=== PATIENT | female | born 1935 | race Caucasian/White ===

== ENCOUNTER 2016-09-05 15:10 | Inpatient (IN) | payer MEDICARE, OTHER ==
[2016-09-05 16:03] VITALS: BMI 25.0
--- NOTE | 2016-09-05 16:26 | History and Physical Report ---
History of Present Illnes - History of Present Illness Reason for Visit: Weakness History of Present Illness: Patient transferred from [facility] after falling and sustaining a R femur fracture, which was repaired by Dr. Pride. She has been at [facility] for [address] Hartman and staff were working on sodium and BP. She also had some noted MS changes. Dr. Hartman told me today she had a sodium of 130 and has been on a 1200 cc fluid restriction (long h/o hyponatremia). Labs with her today were 125. Also noted HGB of 8.0. Patient has seen Dr. Barclay for iron deficiency in past and got IV iron. She is feeling good today - just weak. Leg causes her quite a bit of pain. 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), Other ( Benign adrenal tumor) Endocrine: Diabetes, Other (Thyroid nodule; Benign adrenal tumor; H/O hyponatremia) - Past Surgical History Past Surgical History: Cholecystectomy, Hysterectomy, Other (L CEA) - Past Family History Mother Family History: Cancer (renal), Father Family History: CVA (49), DM, - Past Social History Smoke: 1 pack per day Alcohol: None Drugs: None Lives: Alone - Health Maintenance Health Maintenance: Influenza Vaccine, Pneumococcal Vaccine, Colonoscopy (04/25) , Other (unknown) Influenza Vaccine: Current for this Influenza Season Pneumonia Vaccine: Yes Resuscitation Status: Resusciation Status Resuscitation Status Full Code Review of Systems - Review of Systems Constitutional: Weakness. negative: Fever Eyes: negative: pain ENT: negative: Ear Pain Respiratory: negative: Cough Cardiovascular: negative: Chest Pain Gastrointestinal: negative: Nausea Genitourinary: negative: Dysuria Musculoskeletal: Leg Pain. negative: Neck Pain Skin: negative: Rash Neurological: Weakness - Medications/Allergies Allergies/Adverse Reactions: Allergies Allergy/AdvReac Type Severity Reaction Status Date / Time Penicillins Allergy Unknown Verified 08/10/16 12:12 Home Medications: Home Medications Clonidine HCl [Catapres] 0.1 mg PO Q12 09/05/16 Escitalopram Oxalate [Lexapro] 10 mg PO 0700 09/05/16 Hydralazine HCl [APRESOLINE] 50 mg PO TID 09/05/16 Nifedipine [Nifedipine ER] 30 mg PO 0700 09/05/16 Tramadol HCl [Ultram] 1 - 2 tab PO Q4 PRN 09/05/16 Current Inpatient Medications: Current Inpatient Medications Aspirin (Aspirin) 81 mg PO DAILY [facility] Clonidine HCl (Catapress) 0.1 mg PO Q12 [facility] Enoxaparin Sodium (Lovenox) 30 mg SQ QD [facility] Stop: 09/19/16 16:59 Miscellaneous (Irbesartan [Avapro]) 300 mg PO D FRANCY Miscellaneous (Nifedipine [Nifedipine Er]) 30 mg PO 0700 [facility] Exam - Exam Vital Signs: Vital Signs (72 hours) 09/05/16 15:31 Temperature 97.3 F L Pulse Rate [ 57 L Left Pulse ox] Respiratory 20 Rate Blood Pressure 126/51 [Left Arm] O2 Sat by Pulse 99 Oximetry General: Alert, Oriented to Person, Oriented to Place, Oriented to Time, Cooperative HEENT: Atraumatic, PERRLA, EOMI, Mouth Mucous membr. moist/Cathedral Neck: Normal Range of Motion Lungs: Clear to auscultation, Normal air movement, Speaks full Sentences Cardiovascular: Regular rate Murmur: Systolic Murmur Abdomen: Normal bowel sounds, Soft, No tenderness Integumentary: Normal, Other (R femur - steri stips on incisions - healing well. ) Extremities: No edema Neurological: Generalized Weakness Psych/Mental Status: Mental status NL, Mood NL, Appropriate Affect, Intact Judgment Assessment/Plan - Assessment/Plan (1) Right femoral fracture Status: Acute Current Visit: Yes Qualifiers: Encounter type: subsequent encounter Femur location: intertrochanteric Fracture type: closed Fracture alignment: nondisplaced Fracture healing: with routine healing Qualified Code(s): S72.144D - Nondisplaced intertrochanteric fracture of right femur, subsequent encounter for closed fracture with routine healing Plan: Lovenox for DVT prevention but watch HGB. Work on pain control. Xrays in [address] Pride. (2) Hyponatremia Status: Acute Current Visit: No Plan: Cont. fluid restriction at 1200 cc/day. Recheck. (3) Weakness Status: Acute Current Visit: Yes Plan: Admit for PT/OT eval and treat. (4) DM type 2 (diabetes mellitus, type 2) Status: Chronic Current Visit: No Qualifiers: Diabetes mellitus complication status: without complication Diabetes mellitus halfway insulin use: without halfway use Qualified Code(s): E11.9 - Type 2 diabetes mellitus without complications Plan: Watch BS. May need SSI. (5) HTN (hypertension) Status: Chronic Current Visit: No Plan: Appears stable. Watch. (6) Iron deficiency anemia Status: Chronic Current Visit: No Qualifiers: Iron deficiency anemia type: unspecified iron deficiency Qualified Code(s) : D50.9 - Iron deficiency anemia, unspecified Plan: [facility] iron studies show low iron. Will start iron replacement. VTE Assessment - RISK FACTOR SCORE VTE RISK FACTOR SCORES: AGE OVER 60 YEARS, MAJOR SURGERY/ANESTHESIA TIME > 1 HOUR, HIP, PELVIS, OR LEG FX - RISK VTE HIGH RISK: SCORE OF 3-4 (RISK PROXIMAL DVT 4-8%) PROPHYLAXIS NEEDED
[2016-09-05] MEDS: ENOXAPARIN SODIUM 30 MG/0.3 ML DISP.SYRIN SQ SCH (18:06)
[2016-09-05] MEDS: HYDRALAZINE HCL 25 MG TABLET PO SCH (18:07)
[2016-09-05] MEDS: CloNIDine HCL 0.1 MG TABLET PO SCH ×2 (20:16→20:57)
[2016-09-05] MEDS: METOPROLOL TARTRATE 50 MG TABLET PO SCH ×2 (20:16→20:57)
[2016-09-05] MEDS: FERROUS SULFATE 325 MG TABLET PO SCH (20:16)
[2016-09-06] MEDS ORDERED: ESCITALOPRAM OXALATE 10 MG TABLET PO ONE (03:38)
[2016-09-06] MEDS ORDERED: ASPIRIN EC 81 MG TABLET.DR ONE (03:38)
[2016-09-06] MEDS: PANTOPRAZOLE SODIUM 40 MG TABLET PO SCH (05:54)
[2016-09-06] MEDS ORDERED: NIFEDIPINE 30 MG PO SCH ×2 (07:00)
[2016-09-06] MEDS ORDERED: ESCITALOPRAM OXALATE 10 MG TABLET PO SCH (07:00)
[2016-09-06] MEDS: METOPROLOL TARTRATE 50 MG TABLET PO SCH ×2 (09:16→20:32)
[2016-09-06] MEDS: CloNIDine HCL 0.1 MG TABLET PO SCH ×2 (09:16→20:31)
[2016-09-06] MEDS: ESCITALOPRAM OXALATE 10 MG TABLET PO SCH (09:16)
[2016-09-06] MEDS: ACETAMINOPHEN 325 MG TABLET PO PRN ×2 (09:16→15:19)
[2016-09-06] MEDS: FERROUS SULFATE 325 MG TABLET PO SCH ×2 (09:17→20:30)
[2016-09-06] MEDS: traMADol HCL 50 MG TABLET PO PRN ×2 (09:17→15:18)
[2016-09-06] MEDS: HYDRALAZINE HCL 25 MG TABLET PO SCH ×3 (09:17→17:57)
[2016-09-06] MEDS: ASPIRIN 81 MG CHEW TAB PO SCH (09:21)
[2016-09-06] MEDS: IRBESARTAN 300 MG TABLET PO SCH (10:21)
[2016-09-06] MEDS: NIFEDIPINE 30 MG PO SCH (15:18)
[2016-09-06] MEDS: ENOXAPARIN SODIUM 30 MG/0.3 ML DISP.SYRIN SQ SCH (17:39)
[2016-09-07] MEDS: PANTOPRAZOLE SODIUM 40 MG TABLET PO SCH (05:42)
[2016-09-07] MEDS: HYDRALAZINE HCL 25 MG TABLET PO SCH ×3 (09:11→17:52)
[2016-09-07] MEDS: METOPROLOL TARTRATE 50 MG TABLET PO SCH ×2 (09:12→20:35)
[2016-09-07] MEDS: ACETAMINOPHEN 325 MG TABLET PO PRN ×2 (09:12→17:52)
[2016-09-07] MEDS: ASPIRIN 81 MG CHEW TAB PO SCH (09:12)
[2016-09-07] MEDS: ESCITALOPRAM OXALATE 10 MG TABLET PO SCH (09:12)
[2016-09-07] MEDS: traMADol HCL 50 MG TABLET PO PRN ×3 (09:12→23:53)
[2016-09-07] MEDS: FERROUS SULFATE 325 MG TABLET PO SCH ×2 (09:13→20:35)
[2016-09-07] MEDS: NIFEDIPINE 30 MG PO SCH (09:13)
[2016-09-07] MEDS: CloNIDine HCL 0.1 MG TABLET PO SCH ×2 (09:13→20:35)
[2016-09-07] MEDS: IRBESARTAN 300 MG TABLET PO SCH (09:39)
[2016-09-07] MEDS: ENOXAPARIN SODIUM 30 MG/0.3 ML DISP.SYRIN SQ SCH (17:52)
[2016-09-08] MEDS: traMADol HCL 50 MG TABLET PO PRN ×3 (00:15→20:36)
[2016-09-08] MEDS: PANTOPRAZOLE SODIUM 40 MG TABLET PO SCH (06:35)
[2016-09-08 07:48] LABS: BASOPHILS % 0.3 (0.0-1.5); EOSINOPHILS % 3.2 % (0.0-6.8); LYMPHOCYTES # 1.5 # k/uL (0.6-4.0); MEAN CORPUSCULAR HEMOGLOBIN 27.7 pg (28.0-34.0); MONOCYTES # 0.4 # k/uL (0.0-0.9); MONOCYTES % 4.1 % (0.0-11.0); NEUTROPHILS # 7.8 # k/uL (1.4-7.7)
[2016-09-08] MEDS ORDERED: QUEtiapine FUMARATE 25 MG TABLET PO SCH (09:00)
[2016-09-08] MEDS: FERROUS SULFATE 325 MG TABLET PO SCH ×2 (09:36→20:37)
[2016-09-08] MEDS: HYDRALAZINE HCL 25 MG TABLET PO SCH ×3 (09:36→17:04)
[2016-09-08] MEDS: CloNIDine HCL 0.1 MG TABLET PO SCH ×2 (09:36→20:37)
[2016-09-08] MEDS: ASPIRIN 81 MG CHEW TAB PO SCH (09:36)
[2016-09-08] MEDS: IRBESARTAN 300 MG TABLET PO SCH (09:37)
[2016-09-08] MEDS: NIFEDIPINE 30 MG PO SCH (09:37)
[2016-09-08] MEDS: METOPROLOL TARTRATE 50 MG TABLET PO SCH ×2 (09:37→20:37)
[2016-09-08] MEDS: ESCITALOPRAM OXALATE 10 MG TABLET PO SCH (09:37)
[2016-09-08] MEDS ORDERED: QUEtiapine FUMARATE 25 MG TABLET PO PRN (11:10)
[2016-09-08] MEDS: ENOXAPARIN SODIUM 30 MG/0.3 ML DISP.SYRIN SQ SCH (16:47)
[2016-09-09] MEDS: PANTOPRAZOLE SODIUM 40 MG TABLET PO SCH (06:06)
[2016-09-09] MEDS: HYDRALAZINE HCL 25 MG TABLET PO SCH ×3 (09:53→18:22)
[2016-09-09] MEDS: ASPIRIN 81 MG CHEW TAB PO SCH (09:54)
[2016-09-09] MEDS: CloNIDine HCL 0.1 MG TABLET PO SCH ×2 (09:55→20:23)
[2016-09-09] MEDS: IRBESARTAN 300 MG TABLET PO SCH (09:55)
[2016-09-09] MEDS: FERROUS SULFATE 325 MG TABLET PO SCH ×2 (09:55→20:23)
[2016-09-09] MEDS: METOPROLOL TARTRATE 50 MG TABLET PO SCH ×2 (09:56→20:23)
[2016-09-09] MEDS: NIFEDIPINE 30 MG PO SCH (09:57)
[2016-09-09] MEDS: ENOXAPARIN SODIUM 30 MG/0.3 ML DISP.SYRIN SQ SCH (17:09)
[2016-09-09] MEDS: ACETAMINOPHEN 325 MG TABLET PO PRN (17:27)
[2016-09-09] MEDS: traMADol HCL 50 MG TABLET PO PRN (20:23)
[2016-09-10] MEDS: PANTOPRAZOLE SODIUM 40 MG TABLET PO SCH (05:55)
[2016-09-10] MEDS: ASPIRIN 81 MG CHEW TAB PO SCH (08:17)
[2016-09-10] MEDS: FERROUS SULFATE 325 MG TABLET PO SCH ×2 (08:17→19:55)
[2016-09-10] MEDS: CloNIDine HCL 0.1 MG TABLET PO SCH ×2 (08:17→19:55)
[2016-09-10] MEDS: HYDRALAZINE HCL 25 MG TABLET PO SCH ×3 (08:17→17:50)
[2016-09-10] MEDS: METOPROLOL TARTRATE 50 MG TABLET PO SCH ×2 (08:18→19:55)
[2016-09-10] MEDS: IRBESARTAN 300 MG TABLET PO SCH (08:18)
[2016-09-10] MEDS: NIFEDIPINE 30 MG PO SCH (08:19)
[2016-09-10] MEDS: ACETAMINOPHEN 325 MG TABLET PO PRN (13:04)
[2016-09-10] MEDS: ENOXAPARIN SODIUM 30 MG/0.3 ML DISP.SYRIN SQ SCH (17:43)
[2016-09-10] MEDS: traMADol HCL 50 MG TABLET PO PRN (19:55)
[2016-09-11] MEDS: PANTOPRAZOLE SODIUM 40 MG TABLET PO SCH (06:27)
[2016-09-11] MEDS: HYDRALAZINE HCL 25 MG TABLET PO SCH ×3 (08:47→17:51)
[2016-09-11] MEDS: FERROUS SULFATE 325 MG TABLET PO SCH ×2 (08:47→19:50)
[2016-09-11] MEDS: IRBESARTAN 300 MG TABLET PO SCH (08:47)
[2016-09-11] MEDS: METOPROLOL TARTRATE 50 MG TABLET PO SCH ×2 (08:47→19:48)
[2016-09-11] MEDS: ASPIRIN 81 MG CHEW TAB PO SCH (08:47)
[2016-09-11] MEDS: CloNIDine HCL 0.1 MG TABLET PO SCH ×2 (08:48→19:48)
[2016-09-11] MEDS: NIFEDIPINE 30 MG PO SCH (08:48)
[2016-09-11] MEDS: ACETAMINOPHEN 325 MG TABLET PO PRN (10:34)
[2016-09-11] MEDS ORDERED: diphenhydrAMINE HCL 25 MG TABLET PO ONE (15:10)
[2016-09-11] MEDS: ENOXAPARIN SODIUM 30 MG/0.3 ML DISP.SYRIN SQ SCH (17:50)
[2016-09-11] MEDS: traMADol HCL 50 MG TABLET PO PRN (19:51)
[2016-09-12] MEDS: PANTOPRAZOLE SODIUM 40 MG TABLET PO SCH (06:16)
[2016-09-12] MEDS: HYDRALAZINE HCL 25 MG TABLET PO SCH ×3 (07:59→16:53)
[2016-09-12] MEDS: ASPIRIN 81 MG CHEW TAB PO SCH (08:00)
[2016-09-12] MEDS: FERROUS SULFATE 325 MG TABLET PO SCH ×2 (08:00→20:08)
[2016-09-12] MEDS: NIFEDIPINE 30 MG PO SCH (08:00)
[2016-09-12] MEDS: METOPROLOL TARTRATE 50 MG TABLET PO SCH ×2 (08:00→20:09)
[2016-09-12] MEDS: CloNIDine HCL 0.1 MG TABLET PO SCH ×2 (08:00→20:08)
[2016-09-12] MEDS: IRBESARTAN 300 MG TABLET PO SCH ×2 (08:01→08:32)
[2016-09-12] MEDS: ACETAMINOPHEN 325 MG TABLET PO PRN (08:29)
[2016-09-12] MEDS: NIFEDIPINE 30 MG TAB.ER.24 PO SCH (10:48)
[2016-09-12 11:13] LABS: BASOPHILS % 0.2 (0.0-1.5); EOSINOPHILS % 1.7 % (0.0-6.8); LYMPHOCYTES # 1.2 # k/uL (0.6-4.0); MEAN CORPUSCULAR HEMOGLOBIN 28.5 pg (28.0-34.0); MONOCYTES # 0.2 # k/uL (0.0-0.9); MONOCYTES % 2.8 % (0.0-11.0); NEUTROPHILS # 4.5 # k/uL (1.4-7.7)
[2016-09-12] MEDS: ENOXAPARIN SODIUM 30 MG/0.3 ML DISP.SYRIN SQ SCH (16:53)
[2016-09-12] MEDS: traMADol HCL 50 MG TABLET PO PRN (20:09)
[2016-09-13] MEDS: PANTOPRAZOLE SODIUM 40 MG TABLET PO SCH (06:20)
[2016-09-13] MEDS: HYDRALAZINE HCL 25 MG TABLET PO SCH ×3 (08:44→17:20)
[2016-09-13] MEDS: CloNIDine HCL 0.1 MG TABLET PO SCH (08:45)
[2016-09-13] MEDS: FERROUS SULFATE 325 MG TABLET PO SCH ×2 (08:45→19:51)
[2016-09-13] MEDS: METOPROLOL TARTRATE 50 MG TABLET PO SCH ×2 (08:45→19:51)
[2016-09-13] MEDS: ASPIRIN 81 MG CHEW TAB PO SCH (08:46)
[2016-09-13] MEDS: NIFEDIPINE 30 MG TAB.ER.24 PO SCH (08:46)
[2016-09-13] MEDS: IRBESARTAN 300 MG TABLET PO SCH (08:46)
[2016-09-13] MEDS: ACETAMINOPHEN 325 MG TABLET PO PRN (08:48)
--- NOTE | 2016-09-13 12:24 | Inpatient Progress Note ---
Subjective - Required Recertification Statement I anticipate X number of days because-include discharge plan: 7 - Review of Systems Subjective: Patient still confused. Therapy reports more off balance yesterday. Objective - Exam Vitals and I&O: Vital Signs Temp 97.8 F 09/13/16 10:04 Pulse 58 L 09/13/16 10:04 Resp 20 09/13/16 10:04 BP 169/60 09/13/16 10:04 Pulse Ox 97 09/13/16 10:04 Intake & Output 09/12/16 09/13/16 09/13/16 23:59 11:59 23:59 Intake Total 440 240 Balance 440 240 Intake: Oral 440 240 Other: Voiding Method Toilet Toilet # Bowel Movements 0 General: Alert, Oriented to Person, Oriented to Place, Oriented to Time Lungs: Clear to auscultation, Normal air movement - Results Results: Laboratory Results WBC 6.00 K/ul (4.00-12.00) 09/12/16 11:00 RBC 2.97 M/ul (3.90-5.20) L 09/12/16 11:00 Hgb 8.5 g/dL (12.0-16.0) L 09/12/16 11:00 Hct 27.4 % (34.5-46.5) L 09/12/16 11:00 MCV 92.1 fl (80.0-100.0) 09/12/16 11:00 MCH 28.5 pg (28.0-34.0) 09/12/16 11:00 MCHC 31.0 g/dL (30.0-36.0) 09/12/16 11:00 RDW 16.8 % (11.3-14.3) H 09/12/16 11:00 Plt Count 427 K/mm3 (130-400) H 09/12/16 11:00 Neut % (Auto) 74.9 % (39.0-79.0) 09/12/16 11:00 Lymph % (Auto) 19.1 % (16.0-50.0) 09/12/16 11:00 [place] % (Auto) 2.8 % (0.0-11.0) 09/12/16 11:00 Eos % (Auto) 1.7 % (0.0-6.8) 09/12/16 11:00 Baso % (Auto) 0.2 (0.0-1.5) 09/12/16 11:00 Neut # 4.5 # k/uL (1.4-7.7) 09/12/16 11:00 Lymph # 1.2 # k/uL (0.6-4.0) 09/12/16 11:00 [place] # 0.2 # k/uL (0.0-0.9) 09/12/16 11:00 Eos # 0.1 # k/uL (0.0-0.6) 09/12/16 11:00 Baso # 0.0 # k/uL (0.0-0.5) 09/12/16 11:00 Reactive Lymphs % 1.3 % (0.0-5.0) 09/12/16 11:00 Reactive Lymphs # 0.1 # k/uL (0.0-0.8) 09/12/16 11:00 Sodium 125 mmol/L (136-145) L 09/12/16 11:00 Potassium 4.3 mmol/L (3.5-5.0) 09/12/16 11:00 Chloride 102 mmol/L (98-110) 09/12/16 11:00 Carbon Dioxide 29 mmol/L (20-32) 09/12/16 11:00 BUN 27 mg/dL (10-26) H 09/12/16 11:00 Creatinine 1.7 mg/dL (0.4-1.5) H 09/12/16 11:00 Estimated Creat Clear 32 09/12/16 11:00 Est GFR ( Amer) 37 (60-) L 09/12/16 11:00 Est GFR (Non-Af Amer) 31 (60-) L 09/12/16 11:00 Glucose 224 mg/dL (70-99) H 09/12/16 11:00 Calcium 9.9 mg/dL (8.5-10.5) 09/12/16 11:00 Assessment/Plan - Assessment/Plan (1) Right femoral fracture Status: Acute Current Visit: Yes Qualifiers: Encounter type: subsequent encounter Femur location: intertrochanteric Fracture type: closed Fracture alignment: nondisplaced Fracture healing: with routine healing Qualified Code(s): S72.144D - Nondisplaced intertrochanteric fracture of right femur, subsequent encounter for closed fracture with routine healing (2) Hyponatremia Status: Acute Current Visit: No Plan: Back down to 125 today from 126. I discussed with Dr. Hartman who suggests this is cause of mentation problems and suggest we look at meds. Pharmacy unable to identify a certain med she is on that would cause this. I found a few case reports of nifedipine and clonidine causing it. Will d/c and recheck sodium in 48 hours. Watch BP closely. If no better, plan to transfer back to [facility]. (3) Weakness Status: Acute Current Visit: Yes (4) DM type 2 (diabetes mellitus, type 2) Status: Chronic Current Visit: No Qualifiers: Diabetes mellitus complication status: without complication Diabetes mellitus intermodal dispatcher insulin use: without intermodal dispatcher use Qualified Code(s): E11.9 - Type 2 diabetes mellitus without complications (5) HTN (hypertension) Status: Chronic Current Visit: No (6) Iron deficiency anemia Status: Chronic Current Visit: No Qualifiers: Iron deficiency anemia type: unspecified iron deficiency Qualified Code(s) : D50.9 - Iron deficiency anemia, unspecified
[2016-09-13] MEDS: ENOXAPARIN SODIUM 30 MG/0.3 ML DISP.SYRIN SQ SCH (17:21)
[2016-09-14] MEDS: PANTOPRAZOLE SODIUM 40 MG TABLET PO SCH (06:07)
[2016-09-14] MEDS: HYDRALAZINE HCL 25 MG TABLET PO SCH ×3 (08:02→17:06)
[2016-09-14] MEDS: FERROUS SULFATE 325 MG TABLET PO SCH ×2 (08:03→19:52)
[2016-09-14] MEDS: IRBESARTAN 300 MG TABLET PO SCH (08:03)
[2016-09-14] MEDS: METOPROLOL TARTRATE 50 MG TABLET PO SCH ×2 (08:03→19:53)
[2016-09-14] MEDS: ASPIRIN 81 MG CHEW TAB PO SCH (08:03)
[2016-09-14] MEDS: ENOXAPARIN SODIUM 30 MG/0.3 ML DISP.SYRIN SQ SCH (17:06)
[2016-09-15] MEDS: PANTOPRAZOLE SODIUM 40 MG TABLET PO SCH (05:42)
[2016-09-15] MEDS: IRBESARTAN 300 MG TABLET PO SCH (08:51)
[2016-09-15] MEDS: HYDRALAZINE HCL 25 MG TABLET PO SCH ×3 (08:52→18:07)
[2016-09-15] MEDS: FERROUS SULFATE 325 MG TABLET PO SCH ×2 (08:52→19:42)
[2016-09-15] MEDS: METOPROLOL TARTRATE 50 MG TABLET PO SCH ×2 (08:52→19:42)
[2016-09-15] MEDS: ASPIRIN 81 MG CHEW TAB PO SCH (08:52)
[2016-09-15] MEDS: ACETAMINOPHEN 325 MG TABLET PO PRN (11:25)
[2016-09-15] MEDS: ENOXAPARIN SODIUM 30 MG/0.3 ML DISP.SYRIN SQ SCH (16:11)
[2016-09-16] MEDS: PANTOPRAZOLE SODIUM 40 MG TABLET PO SCH (06:17)
[2016-09-16] MEDS: ACETAMINOPHEN 325 MG TABLET PO PRN (07:35)
[2016-09-16] MEDS: HYDRALAZINE HCL 25 MG TABLET PO SCH ×3 (08:29→17:56)
[2016-09-16] MEDS: METOPROLOL TARTRATE 50 MG TABLET PO SCH ×2 (08:30→19:45)
[2016-09-16] MEDS: ASPIRIN 81 MG CHEW TAB PO SCH (08:30)
[2016-09-16] MEDS: FERROUS SULFATE 325 MG TABLET PO SCH ×2 (08:30→19:45)
[2016-09-16] MEDS: IRBESARTAN 300 MG TABLET PO SCH (08:30)
[2016-09-16] MEDS: ENOXAPARIN SODIUM 30 MG/0.3 ML DISP.SYRIN SQ SCH (17:56)
[2016-09-17] MEDS: PANTOPRAZOLE SODIUM 40 MG TABLET PO SCH (06:02)
[2016-09-17] MEDS: HYDRALAZINE HCL 25 MG TABLET PO SCH ×3 (08:25→17:55)
[2016-09-17] MEDS: FERROUS SULFATE 325 MG TABLET PO SCH ×2 (08:26→19:46)
[2016-09-17] MEDS: ASPIRIN 81 MG CHEW TAB PO SCH (08:26)
[2016-09-17] MEDS: METOPROLOL TARTRATE 50 MG TABLET PO SCH ×2 (08:26→19:46)
[2016-09-17] MEDS: IRBESARTAN 300 MG TABLET PO SCH (09:25)
[2016-09-17] MEDS: ENOXAPARIN SODIUM 30 MG/0.3 ML DISP.SYRIN SQ SCH (17:55)
[2016-09-18] MEDS: PANTOPRAZOLE SODIUM 40 MG TABLET PO SCH (05:41)
--- NOTE | 2016-09-18 08:01 | Inpatient Progress Note ---
Subjective - Required Recertification Statement I anticipate X number of days because-include discharge plan: 7 - Review of Systems Subjective: Confusion is improving. BP up to 180's at times. Objective - Exam Vitals and I&O: Vital Signs Temp 98.6 F 09/17/16 20:23 Pulse 86 09/17/16 20:23 Resp 18 09/17/16 20:23 BP 156/70 09/17/16 20:23 Pulse Ox 97 09/17/16 20:23 Intake & Output 09/17/16 09/17/16 09/18/16 11:59 23:59 11:59 Intake Total 390 1060 30 Output Total 3 Balance 390 1057 30 Weight 69.4 kg Intake: Oral 390 1060 30 Output: Urine 3 Other: Voiding Method Toilet Toilet General: Alert, Oriented to Person, Oriented to Time, Cooperative Lungs: Clear to auscultation, Normal air movement Cardiovascular: Regular rate - Results Results: Laboratory Results WBC 6.00 K/ul (4.00-12.00) 09/12/16 11:00 RBC 2.97 M/ul (3.90-5.20) L 09/12/16 11:00 Hgb 8.5 g/dL (12.0-16.0) L 09/12/16 11:00 Hct 27.4 % (34.5-46.5) L 09/12/16 11:00 MCV 92.1 fl (80.0-100.0) 09/12/16 11:00 MCH 28.5 pg (28.0-34.0) 09/12/16 11:00 MCHC 31.0 g/dL (30.0-36.0) 09/12/16 11:00 RDW 16.8 % (11.3-14.3) H 09/12/16 11:00 Plt Count 427 K/mm3 (130-400) H 09/12/16 11:00 Neut % (Auto) 74.9 % (39.0-79.0) 09/12/16 11:00 Lymph % (Auto) 19.1 % (16.0-50.0) 09/12/16 11:00 [place] % (Auto) 2.8 % (0.0-11.0) 09/12/16 11:00 Eos % (Auto) 1.7 % (0.0-6.8) 09/12/16 11:00 Baso % (Auto) 0.2 (0.0-1.5) 09/12/16 11:00 Neut # 4.5 # k/uL (1.4-7.7) 09/12/16 11:00 Lymph # 1.2 # k/uL (0.6-4.0) 09/12/16 11:00 [place] # 0.2 # k/uL (0.0-0.9) 09/12/16 11:00 Eos # 0.1 # k/uL (0.0-0.6) 09/12/16 11:00 Baso # 0.0 # k/uL (0.0-0.5) 09/12/16 11:00 Reactive Lymphs % 1.3 % (0.0-5.0) 09/12/16 11:00 Reactive Lymphs # 0.1 # k/uL (0.0-0.8) 09/12/16 11:00 Sodium 128 mmol/L (136-145) L 09/18/16 06:10 Potassium 4.4 mmol/L (3.5-5.0) 09/18/16 06:10 Chloride 96 mmol/L (98-110) L 09/18/16 06:10 Carbon Dioxide 24 mmol/L (20-32) 09/18/16 06:10 BUN 28 mg/dL (10-26) H 09/18/16 06:10 Creatinine 1.5 mg/dL (0.4-1.5) 09/18/16 06:10 Estimated Creat Clear 37 09/18/16 06:10 Est GFR ( Amer) 43 (60-) L 09/18/16 06:10 Est GFR (Non-Af Amer) 35 (60-) L 09/18/16 06:10 Glucose 139 mg/dL (70-99) H 09/18/16 06:10 Calcium 9.3 mg/dL (8.5-10.5) 09/18/16 06:10 Assessment/Plan - Assessment/Plan (1) Right femoral fracture Status: Acute Current Visit: Yes Qualifiers: Encounter type: subsequent encounter Femur location: intertrochanteric Fracture type: closed Fracture alignment: nondisplaced Fracture healing: with routine healing Qualified Code(s): S72.144D - Nondisplaced intertrochanteric fracture of right femur, subsequent encounter for closed fracture with routine healing Plan: Cont. PT/OT. (2) Hyponatremia Status: Acute Current Visit: No Plan: Improved off clonidine and (3) Weakness Status: Acute Current Visit: Yes (4) DM type 2 (diabetes mellitus, type 2) Status: Chronic Current Visit: No Qualifiers: Diabetes mellitus complication status: without complication Diabetes mellitus halfway insulin use: without termite helper use Qualified Code(s): E11.9 - Type 2 diabetes mellitus without complications (5) HTN (hypertension) Status: Chronic Current Visit: No Plan: Restart nifedipine this am. Watch sodium. (6) Iron deficiency anemia Status: Chronic Current Visit: No Qualifiers: Iron deficiency anemia type: unspecified iron deficiency Qualified Code(s) : D50.9 - Iron deficiency anemia, unspecified
[2016-09-18] MEDS: FERROUS SULFATE 325 MG TABLET PO SCH ×2 (08:37→20:16)
[2016-09-18] MEDS: IRBESARTAN 300 MG TABLET PO SCH (08:37)
[2016-09-18] MEDS: NIFEDIPINE 30 MG TAB.ER.24 PO SCH (08:37)
[2016-09-18] MEDS: HYDRALAZINE HCL 25 MG TABLET PO SCH ×3 (08:37→17:51)
[2016-09-18] MEDS: METOPROLOL TARTRATE 50 MG TABLET PO SCH ×2 (08:37→20:16)
[2016-09-18] MEDS: ASPIRIN 81 MG CHEW TAB PO SCH (08:37)
[2016-09-18] MEDS: ACETAMINOPHEN 325 MG TABLET PO PRN (11:28)
[2016-09-18] MEDS: ENOXAPARIN SODIUM 30 MG/0.3 ML DISP.SYRIN SQ SCH (17:51)
[2016-09-19] MEDS: PANTOPRAZOLE SODIUM 40 MG TABLET PO SCH (05:45)
[2016-09-19] MEDS: FERROUS SULFATE 325 MG TABLET PO SCH ×2 (08:47→19:41)
[2016-09-19] MEDS: HYDRALAZINE HCL 25 MG TABLET PO SCH ×3 (08:47→17:52)
[2016-09-19] MEDS: ASPIRIN 81 MG CHEW TAB PO SCH (08:47)
[2016-09-19] MEDS: IRBESARTAN 300 MG TABLET PO SCH (08:48)
[2016-09-19] MEDS: METOPROLOL TARTRATE 50 MG TABLET PO SCH ×2 (08:48→19:41)
[2016-09-19] MEDS: NIFEDIPINE 30 MG TAB.ER.24 PO SCH (08:48)
[2016-09-19] MEDS: ACETAMINOPHEN 325 MG TABLET PO PRN (10:12)
[2016-09-20] MEDS: PANTOPRAZOLE SODIUM 40 MG TABLET PO SCH (06:36)
[2016-09-20] MEDS: FERROUS SULFATE 325 MG TABLET PO SCH ×2 (08:26→19:47)
[2016-09-20] MEDS: HYDRALAZINE HCL 25 MG TABLET PO SCH ×3 (08:26→18:29)
[2016-09-20] MEDS: ASPIRIN 81 MG CHEW TAB PO SCH (08:26)
[2016-09-20] MEDS: IRBESARTAN 300 MG TABLET PO SCH (08:26)
[2016-09-20] MEDS: METOPROLOL TARTRATE 50 MG TABLET PO SCH ×2 (08:31→19:47)
[2016-09-20] MEDS: NIFEDIPINE 30 MG TAB.ER.24 PO SCH (08:31)
[2016-09-20] MEDS: ACETAMINOPHEN 325 MG TABLET PO SCH (18:29)
--- NOTE | 2016-09-20 18:35 | Diagnostic Imaging Report ---
[facility] [id number] [facility] [address] [address] Report Submission Date: Sep 20, 2016 4:25:16 PM MARKET RESEARCH SPECIALIST Patient Study Name: LIZA RAMIREZ Date: Sep 20, 2016 3:12:06 PM MARKET RESEARCH SPECIALIST Modality Type: CR Gender: F Description: PELVIS : 31 Institution: [facility] Physician: JASE TAYLOR MD Right hip 2 views Clinical history: Right hip pain, history of fall 3 weeks ago There is a fairly recent of intertrochanteric fracture with an internal fixation with hardware in good position. Prior films are not available for comparison. Fracture of the lesser trochanter is displaced medially and superiorly . Impression: An intertrochanteric fracture of the right hip with hardware is in good position Fracture of the lesser trochanter is displaced medially and superiorly Electronically signed on Sep 20, 2016 4:25:16 PM MARKET RESEARCH SPECIALIST by: Lucius DENSON
[2016-09-21] MEDS: PANTOPRAZOLE SODIUM 40 MG TABLET PO SCH (06:50)
[2016-09-21] MEDS: ASPIRIN 81 MG CHEW TAB PO SCH (08:13)
[2016-09-21] MEDS: FERROUS SULFATE 325 MG TABLET PO SCH ×2 (08:13→19:33)
[2016-09-21] MEDS: HYDRALAZINE HCL 25 MG TABLET PO SCH ×3 (08:13→18:09)
[2016-09-21] MEDS: NIFEDIPINE 30 MG TAB.ER.24 PO SCH (08:14)
[2016-09-21] MEDS: IRBESARTAN 300 MG TABLET PO SCH (08:14)
[2016-09-21] MEDS: ACETAMINOPHEN 325 MG TABLET PO SCH ×3 (08:14→18:17)
[2016-09-21] MEDS: METOPROLOL TARTRATE 50 MG TABLET PO SCH ×2 (08:14→19:33)
[2016-09-21] MEDS: ACETAMINOPHEN 325 MG TABLET PO PRN (13:00)
[2016-09-21] MEDS ORDERED: METOPROLOL TARTRATE 50 MG TABLET ONE (19:32)
[2016-09-22] MEDS: PANTOPRAZOLE SODIUM 40 MG TABLET PO SCH (06:10)
[2016-09-22] MEDS: HYDRALAZINE HCL 25 MG TABLET PO SCH ×3 (09:04→18:47)
[2016-09-22] MEDS: ASPIRIN 81 MG CHEW TAB PO SCH (09:05)
[2016-09-22] MEDS: FERROUS SULFATE 325 MG TABLET PO SCH ×2 (09:05→20:24)
[2016-09-22] MEDS: METOPROLOL TARTRATE 50 MG TABLET PO SCH ×2 (09:06→20:24)
[2016-09-22] MEDS: NIFEDIPINE 30 MG TAB.ER.24 PO SCH (09:06)
[2016-09-22] MEDS: IRBESARTAN 300 MG TABLET PO SCH (09:06)
[2016-09-22] MEDS: ACETAMINOPHEN 325 MG TABLET PO SCH ×3 (09:07→18:48)
[2016-09-23] MEDS: PANTOPRAZOLE SODIUM 40 MG TABLET PO SCH (05:29)
[2016-09-23] MEDS: HYDRALAZINE HCL 25 MG TABLET PO SCH ×3 (08:06→18:06)
[2016-09-23] MEDS: ASPIRIN 81 MG CHEW TAB PO SCH (08:06)
[2016-09-23] MEDS: METOPROLOL TARTRATE 50 MG TABLET PO SCH ×2 (08:07→20:02)
[2016-09-23] MEDS: FERROUS SULFATE 325 MG TABLET PO SCH ×2 (08:07→20:02)
[2016-09-23] MEDS: ACETAMINOPHEN 325 MG TABLET PO SCH ×3 (08:08→18:11)
[2016-09-23] MEDS: NIFEDIPINE 30 MG TAB.ER.24 PO SCH (08:36)
[2016-09-23] MEDS: IRBESARTAN 300 MG TABLET PO SCH (08:36)
[2016-09-24] MEDS: PANTOPRAZOLE SODIUM 40 MG TABLET PO SCH (05:51)
[2016-09-24] MEDS: HYDRALAZINE HCL 25 MG TABLET PO SCH ×3 (08:39→18:25)
[2016-09-24] MEDS: ASPIRIN 81 MG CHEW TAB PO SCH (08:40)
[2016-09-24] MEDS: FERROUS SULFATE 325 MG TABLET PO SCH ×2 (08:40→20:20)
[2016-09-24] MEDS: IRBESARTAN 300 MG TABLET PO SCH (08:40)
[2016-09-24] MEDS: ACETAMINOPHEN 325 MG TABLET PO SCH ×3 (08:41→18:25)
[2016-09-24] MEDS: NIFEDIPINE 30 MG TAB.ER.24 PO SCH (08:41)
[2016-09-24] MEDS: METOPROLOL TARTRATE 50 MG TABLET PO SCH ×2 (08:43→20:20)
[2016-09-24] MEDS: POLYETHYLENE GLYCOL 3350 17 GM POWD.PACK PO PRN (11:48)
[2016-09-25] MEDS: PANTOPRAZOLE SODIUM 40 MG TABLET PO SCH (06:03)
[2016-09-25] MEDS: FERROUS SULFATE 325 MG TABLET PO SCH ×2 (07:17→20:37)
[2016-09-25] MEDS: IRBESARTAN 300 MG TABLET PO SCH (07:17)
[2016-09-25] MEDS: ASPIRIN 81 MG CHEW TAB PO SCH (07:17)
[2016-09-25] MEDS: HYDRALAZINE HCL 25 MG TABLET PO SCH ×3 (07:17→18:03)
[2016-09-25] MEDS: ACETAMINOPHEN 325 MG TABLET PO SCH ×3 (07:18→18:03)
[2016-09-25] MEDS: METOPROLOL TARTRATE 50 MG TABLET PO SCH ×2 (07:18→20:37)
[2016-09-25] MEDS: NIFEDIPINE 30 MG TAB.ER.24 PO SCH (08:21)
[2016-09-25] MEDS: POLYETHYLENE GLYCOL 3350 17 GM POWD.PACK PO PRN (13:16)
[2016-09-25] MEDS ORDERED: ENOXAPARIN SODIUM 30 MG/0.3 ML DISP.SYRIN SQ ONE (19:50)
[2016-09-25] MEDS ORDERED: methylPREDNISolone SOD SUCC 125 MG/2 ML VIAL ONE (19:51)
[2016-09-25] MEDS ORDERED: cefTRIAXone SODIUM 1 GM VIAL ONE (19:51)
[2016-09-25] MEDS ORDERED: IPRATROPIUM/ALBUTEROL SULFATE 3 ML AMPUL.NEB NEB ONE (19:51)
[2016-09-25] MEDS ORDERED: AZITHROMYCIN 500 MG VIAL IV ONE (19:51)
[2016-09-25] MEDS ORDERED: 0.9 % SODIUM CHLORIDE 250 ML IV ONE (19:51)
[2016-09-25] MEDS ORDERED: 0.9 % SODIUM CHLORIDE 50 ML IV ONE (19:51)
[2016-09-25] MEDS ORDERED: SALINE FLUSH 10 ML DISP.SYRIN IVF ONE (19:52)
[2016-09-26] MEDS: PANTOPRAZOLE SODIUM 40 MG TABLET PO SCH (06:35)
--- NOTE | 2016-09-26 07:42 | Inpatient Progress Note ---
Subjective - Required Recertification Statement I anticipate X number of days because-include discharge plan: 10 - Review of Systems Subjective: Patient is doing better. Still having pain in R leg. Objective - Exam Vitals and I&O: Vital Signs Temp 97.1 F L 09/25/16 20:12 Pulse 70 09/25/16 21:00 Resp 20 09/25/16 21:00 BP 155/68 09/25/16 20:12 Pulse Ox 98 09/25/16 20:12 Intake & Output 09/25/16 09/25/16 09/26/16 11:59 23:59 11:59 Intake Total 530 50 Balance 530 50 Intake: Oral 530 50 Other: Voiding Method Toilet Toilet # Voids 2 1 2 # Bowel Movements 1 General: Alert, Oriented to Person, Oriented to Place, Oriented to Time, Cooperative Lungs: Clear to auscultation, Normal air movement, Speaks full Sentences Cardiovascular: Regular rate - Results Results: Laboratory Results WBC 6.00 K/ul (4.00-12.00) 09/12/16 11:00 RBC 2.97 M/ul (3.90-5.20) L 09/12/16 11:00 Hgb 8.5 g/dL (12.0-16.0) L 09/12/16 11:00 Hct 27.4 % (34.5-46.5) L 09/12/16 11:00 MCV 92.1 fl (80.0-100.0) 09/12/16 11:00 MCH 28.5 pg (28.0-34.0) 09/12/16 11:00 MCHC 31.0 g/dL (30.0-36.0) 09/12/16 11:00 RDW 16.8 % (11.3-14.3) H 09/12/16 11:00 Plt Count 427 K/mm3 (130-400) H 09/12/16 11:00 Neut % (Auto) 74.9 % (39.0-79.0) 09/12/16 11:00 Lymph % (Auto) 19.1 % (16.0-50.0) 09/12/16 11:00 [place] % (Auto) 2.8 % (0.0-11.0) 09/12/16 11:00 Eos % (Auto) 1.7 % (0.0-6.8) 09/12/16 11:00 Baso % (Auto) 0.2 (0.0-1.5) 09/12/16 11:00 Neut # 4.5 # k/uL (1.4-7.7) 09/12/16 11:00 Lymph # 1.2 # k/uL (0.6-4.0) 09/12/16 11:00 [place] # 0.2 # k/uL (0.0-0.9) 09/12/16 11:00 Eos # 0.1 # k/uL (0.0-0.6) 09/12/16 11:00 Baso # 0.0 # k/uL (0.0-0.5) 09/12/16 11:00 Reactive Lymphs % 1.3 % (0.0-5.0) 09/12/16 11:00 Reactive Lymphs # 0.1 # k/uL (0.0-0.8) 09/12/16 11:00 Sodium 133 mmol/L (136-145) L 09/25/16 06:50 Potassium 4.5 mmol/L (3.5-5.0) 09/25/16 06:50 Chloride 99 mmol/L (98-110) 09/25/16 06:50 Carbon Dioxide 27 mmol/L (20-32) 09/25/16 06:50 BUN 27 mg/dL (10-26) H 09/25/16 06:50 Creatinine 1.7 mg/dL (0.4-1.5) H 09/25/16 06:50 Estimated Creat Clear 32 09/25/16 06:50 Est GFR ( Amer) 37 (60-) L 09/25/16 06:50 Est GFR (Non-Af Amer) 31 (60-) L 09/25/16 06:50 Glucose 137 mg/dL (70-99) H 09/25/16 06:50 Calcium 9.6 mg/dL (8.5-10.5) 09/25/16 06:50 Assessment/Plan - Assessment/Plan (1) Right femoral fracture Status: Acute Current Visit: Yes Qualifiers: Encounter type: subsequent encounter Femur location: intertrochanteric Fracture type: closed Fracture alignment: nondisplaced Fracture healing: with routine healing Qualified Code(s): S72.144D - Nondisplaced intertrochanteric fracture of right femur, subsequent encounter for closed fracture with routine healing Plan: Add K pad for comfort. (2) Hyponatremia Status: Acute Current Visit: No Plan: Improved. Will increase fluid restriction. Watch closely. (3) Weakness Status: Acute Current Visit: Yes (4) DM type 2 (diabetes mellitus, type 2) Status: Chronic Current Visit: No Qualifiers: Diabetes mellitus complication status: without complication Diabetes mellitus superintendent terminal insulin use: without assisted use Qualified Code(s): E11.9 - Type 2 diabetes mellitus without complications (5) HTN (hypertension) Status: Chronic Current Visit: No Plan: Stable. (6) Iron deficiency anemia Status: Chronic Current Visit: No Qualifiers: Iron deficiency anemia type: unspecified iron deficiency Qualified Code(s) : D50.9 - Iron deficiency anemia, unspecified
[2016-09-26] MEDS: ASPIRIN 81 MG CHEW TAB PO SCH (09:26)
[2016-09-26] MEDS: METOPROLOL TARTRATE 50 MG TABLET PO SCH ×2 (09:27→21:06)
[2016-09-26] MEDS: IRBESARTAN 300 MG TABLET PO SCH (09:27)
[2016-09-26] MEDS: NIFEDIPINE 30 MG TAB.ER.24 PO SCH (09:28)
[2016-09-26] MEDS: ACETAMINOPHEN 325 MG TABLET PO SCH ×3 (09:29→17:44)
[2016-09-26] MEDS: HYDRALAZINE HCL 25 MG TABLET PO SCH ×3 (09:36→17:43)
[2016-09-26] MEDS: FERROUS SULFATE 325 MG TABLET PO SCH ×2 (09:36→21:05)
[2016-09-27] MEDS: PANTOPRAZOLE SODIUM 40 MG TABLET PO SCH (06:15)
[2016-09-27] MEDS: traMADol HCL 50 MG TABLET PO PRN (07:54)
[2016-09-27] MEDS: ACETAMINOPHEN 325 MG TABLET PO SCH ×3 (07:54→18:31)
[2016-09-27] MEDS: IRBESARTAN 300 MG TABLET PO SCH (07:55)
[2016-09-27] MEDS: NIFEDIPINE 30 MG TAB.ER.24 PO SCH (07:55)
[2016-09-27] MEDS: METOPROLOL TARTRATE 50 MG TABLET PO SCH ×2 (07:58→20:19)
[2016-09-27] MEDS: ASPIRIN 81 MG CHEW TAB PO SCH (07:58)
[2016-09-27] MEDS: HYDRALAZINE HCL 25 MG TABLET PO SCH ×3 (07:58→18:31)
[2016-09-27] MEDS: FERROUS SULFATE 325 MG TABLET PO SCH ×4 (09:35→20:19)
[2016-09-28] MEDS: PANTOPRAZOLE SODIUM 40 MG TABLET PO SCH (06:13)
[2016-09-28] MEDS: ASPIRIN 81 MG CHEW TAB PO SCH (08:09)
[2016-09-28] MEDS: HYDRALAZINE HCL 25 MG TABLET PO SCH ×3 (08:09→18:12)
[2016-09-28] MEDS: METOPROLOL TARTRATE 50 MG TABLET PO SCH ×2 (08:10→20:11)
[2016-09-28] MEDS: NIFEDIPINE 30 MG TAB.ER.24 PO SCH (08:10)
[2016-09-28] MEDS: FERROUS SULFATE 325 MG TABLET PO SCH ×4 (08:10→20:11)
[2016-09-28] MEDS: IRBESARTAN 300 MG TABLET PO SCH (08:10)
[2016-09-28] MEDS: ACETAMINOPHEN 325 MG TABLET PO SCH ×3 (08:10→18:10)
[2016-09-29] MEDS: PANTOPRAZOLE SODIUM 40 MG TABLET PO SCH (05:51)
[2016-09-29] MEDS: ASPIRIN 81 MG CHEW TAB PO SCH (08:21)
[2016-09-29] MEDS: IRBESARTAN 300 MG TABLET PO SCH (08:21)
[2016-09-29] MEDS: HYDRALAZINE HCL 25 MG TABLET PO SCH ×3 (08:21→17:32)
[2016-09-29] MEDS: METOPROLOL TARTRATE 50 MG TABLET PO SCH ×2 (08:22→19:28)
[2016-09-29] MEDS: NIFEDIPINE 30 MG TAB.ER.24 PO SCH (08:22)
[2016-09-29] MEDS: ACETAMINOPHEN 325 MG TABLET PO SCH ×3 (08:22→17:32)
[2016-09-29] MEDS: FERROUS SULFATE 325 MG TABLET PO SCH (19:28)
[2016-09-30] MEDS: PANTOPRAZOLE SODIUM 40 MG TABLET PO SCH (06:18)
[2016-09-30] MEDS: HYDRALAZINE HCL 25 MG TABLET PO SCH ×3 (08:26→18:20)
[2016-09-30] MEDS: ASPIRIN 81 MG CHEW TAB PO SCH (08:27)
[2016-09-30] MEDS: METOPROLOL TARTRATE 50 MG TABLET PO SCH ×2 (08:27→19:22)
[2016-09-30] MEDS: IRBESARTAN 300 MG TABLET PO SCH (08:27)
[2016-09-30] MEDS: NIFEDIPINE 30 MG TAB.ER.24 PO SCH (08:28)
[2016-09-30] MEDS: ACETAMINOPHEN 325 MG TABLET PO SCH ×3 (08:28→18:20)
[2016-09-30] MEDS: FERROUS SULFATE 325 MG TABLET PO SCH ×2 (11:12→18:23)
[2016-10-01] MEDS: PANTOPRAZOLE SODIUM 40 MG TABLET PO SCH (05:57)
[2016-10-01] MEDS: HYDRALAZINE HCL 25 MG TABLET PO SCH ×3 (08:14→18:16)
[2016-10-01] MEDS: ASPIRIN 81 MG CHEW TAB PO SCH (08:14)
[2016-10-01] MEDS: METOPROLOL TARTRATE 50 MG TABLET PO SCH ×2 (08:14→20:53)
[2016-10-01] MEDS: ACETAMINOPHEN 325 MG TABLET PO SCH ×3 (08:15→18:16)
[2016-10-01] MEDS: NIFEDIPINE 30 MG TAB.ER.24 PO SCH (09:07)
[2016-10-01] MEDS: IRBESARTAN 300 MG TABLET PO SCH (09:07)
[2016-10-01] MEDS: FERROUS SULFATE 325 MG TABLET PO SCH ×2 (11:02→18:48)
[2016-10-02] MEDS: PANTOPRAZOLE SODIUM 40 MG TABLET PO SCH (06:11)
[2016-10-02 06:38] LABS: BASOPHILS % 0.4 (0.0-1.5); EOSINOPHILS % 6.3 % (0.0-6.8); LYMPHOCYTES # 1.7 # k/uL (0.6-4.0); MEAN CORPUSCULAR HEMOGLOBIN 29.2 pg (28.0-34.0); MONOCYTES # 0.3 # k/uL (0.0-0.9); MONOCYTES % 4.6 % (0.0-11.0); NEUTROPHILS # 3.5 # k/uL (1.4-7.7)
[2016-10-02] MEDS: HYDRALAZINE HCL 25 MG TABLET PO SCH ×3 (08:41→17:30)
[2016-10-02] MEDS: ASPIRIN 81 MG CHEW TAB PO SCH (08:41)
[2016-10-02] MEDS: IRBESARTAN 300 MG TABLET PO SCH (08:41)
[2016-10-02] MEDS: ACETAMINOPHEN 325 MG TABLET PO SCH ×3 (08:42→17:30)
[2016-10-02] MEDS: METOPROLOL TARTRATE 50 MG TABLET PO SCH ×2 (08:43→21:09)
[2016-10-02] MEDS: NIFEDIPINE 30 MG TAB.ER.24 PO SCH (08:51)
[2016-10-02] MEDS: FERROUS SULFATE 325 MG TABLET PO SCH ×2 (12:49→21:08)
[2016-10-03] MEDS: PANTOPRAZOLE SODIUM 40 MG TABLET PO SCH (06:25)
[2016-10-03 06:56] LABS: BASOPHILS % 0.5 (0.0-1.5); LYMPHOCYTES # 2.1 # k/uL (0.6-4.0); MEAN CORPUSCULAR HEMOGLOBIN 28.7 pg (28.0-34.0); MONOCYTES # 0.4 # k/uL (0.0-0.9); MONOCYTES % 5.2 % (0.0-11.0)
[2016-10-03] MEDS: HYDRALAZINE HCL 25 MG TABLET PO SCH ×3 (08:46→17:34)
[2016-10-03] MEDS: ACETAMINOPHEN 325 MG TABLET PO SCH ×3 (08:46→17:33)
[2016-10-03] MEDS: ASPIRIN 81 MG CHEW TAB PO SCH (08:46)
[2016-10-03] MEDS: NIFEDIPINE 30 MG TAB.ER.24 PO SCH (08:46)
[2016-10-03] MEDS: METOPROLOL TARTRATE 50 MG TABLET PO SCH ×2 (08:47→19:38)
[2016-10-03] MEDS: IRBESARTAN 300 MG TABLET PO SCH (08:47)
[2016-10-03] MEDS: FERROUS SULFATE 325 MG TABLET PO SCH ×2 (10:58→18:40)
[2016-10-04] MEDS: PANTOPRAZOLE SODIUM 40 MG TABLET PO SCH (05:42)
[2016-10-04] MEDS: ASPIRIN 81 MG CHEW TAB PO SCH (10:17)
[2016-10-04] MEDS: IRBESARTAN 300 MG TABLET PO SCH (10:17)
[2016-10-04] MEDS: HYDRALAZINE HCL 25 MG TABLET PO SCH ×3 (10:17→17:00)
[2016-10-04] MEDS: ACETAMINOPHEN 325 MG TABLET PO SCH ×3 (10:18→17:00)
[2016-10-04] MEDS: NIFEDIPINE 30 MG TAB.ER.24 PO SCH (10:18)
[2016-10-04] MEDS: METOPROLOL TARTRATE 50 MG TABLET PO SCH ×2 (10:18→19:56)
[2016-10-04] MEDS: FERROUS SULFATE 325 MG TABLET PO SCH ×2 (10:19→18:34)
[2016-10-04 17:47] LABS: BASOPHILS % 0.3 (0.0-1.5); EOSINOPHILS % 3.9 % (0.0-6.8); LYMPHOCYTES # 2.5 # k/uL (0.6-4.0); MEAN CORPUSCULAR HEMOGLOBIN 29.2 pg (28.0-34.0); MONOCYTES # 0.4 # k/uL (0.0-0.9); MONOCYTES % 4.6 % (0.0-11.0); NEUTROPHILS # 4.6 # k/uL (1.4-7.7)
[2016-10-05] MEDS: PANTOPRAZOLE SODIUM 40 MG TABLET PO SCH (05:53)
--- NOTE | 2016-10-05 08:18 | Inpatient Progress Note ---
Subjective - Required Recertification Statement I anticipate X number of days because-include discharge plan: 7 - Review of Systems Subjective: Patient is feeling ok. C/O B leg pain and swelling. Wearing VITO hose. PT going well. Appetite good. Objective - Exam Vitals and I&O: Vital Signs Temp 97.3 F L 10/04/16 21:00 Pulse 69 10/04/16 21:00 Resp 20 10/04/16 21:00 BP 143/57 10/04/16 21:00 Pulse Ox 98 10/04/16 21:00 Intake & Output 10/04/16 10/04/16 10/05/16 11:59 23:59 11:59 Intake Total 660 320 Balance 660 320 Intake: Oral 660 320 Other: Voiding Method Toilet Toilet # Voids 3 # Bowel Movements 0 General: Alert, Oriented to Person, Oriented to Place, Oriented to Time, Cooperative, No acute distress Lungs: Clear to auscultation Cardiovascular: Regular rate Extremities: Other (1+ edema B legs. Tender diffusely.) - Results Results: Laboratory Results WBC 7.90 K/ul (4.00-12.00) 10/04/16 17:40 RBC 2.67 M/ul (3.90-5.20) L 10/04/16 17:40 Hgb 7.8 g/dL (12.0-16.0) L 10/04/16 17:40 Hct 25.5 % (34.5-46.5) L 10/04/16 17:40 MCV 95.3 fl (80.0-100.0) 10/04/16 17:40 MCH 29.2 pg (28.0-34.0) 10/04/16 17:40 MCHC 30.6 g/dL (30.0-36.0) 10/04/16 17:40 RDW 16.9 % (11.3-14.3) H 10/04/16 17:40 Plt Count 445 K/mm3 (130-400) H 10/04/16 17:40 Neut % (Auto) 58.0 % (39.0-79.0) 10/04/16 17:40 Lymph % (Auto) 31.3 % (16.0-50.0) 10/04/16 17:40 [place] % (Auto) 4.6 % (0.0-11.0) 10/04/16 17:40 Eos % (Auto) 3.9 % (0.0-6.8) 10/04/16 17:40 Baso % (Auto) 0.3 (0.0-1.5) 10/04/16 17:40 Neut # 4.6 # k/uL (1.4-7.7) 10/04/16 17:40 Lymph # 2.5 # k/uL (0.6-4.0) 10/04/16 17:40 [place] # 0.4 # k/uL (0.0-0.9) 10/04/16 17:40 Eos # 0.3 # k/uL (0.0-0.6) 10/04/16 17:40 Baso # 0.0 # k/uL (0.0-0.5) 10/04/16 17:40 Reactive Lymphs % 1.9 % (0.0-5.0) 10/04/16 17:40 Reactive Lymphs # 0.2 # k/uL (0.0-0.8) 10/04/16 17:40 Sodium 131 mmol/L (136-145) L 10/02/16 05:50 Potassium 4.2 mmol/L (3.5-5.0) 10/02/16 05:50 Chloride 106 mmol/L (98-110) 10/02/16 05:50 Carbon Dioxide 25 mmol/L (20-32) 10/02/16 05:50 BUN 34 mg/dL (10-26) H 10/02/16 05:50 Creatinine 1.6 mg/dL (0.4-1.5) H 10/02/16 05:50 Estimated Creat Clear 34 10/02/16 05:50 Est GFR ( Amer) 40 (60-) L 10/02/16 05:50 Est GFR (Non-Af Amer) 33 (60-) L 10/02/16 05:50 Glucose 132 mg/dL (70-99) H 10/02/16 05:50 Calcium 9.9 mg/dL (8.5-10.5) 10/02/16 05:50 Assessment/Plan - Assessment/Plan (1) Right femoral fracture Status: Acute Current Visit: Yes Qualifiers: Encounter type: subsequent encounter Femur location: intertrochanteric Fracture type: closed Fracture alignment: nondisplaced Fracture healing: with routine healing Qualified Code(s): S72.144D - Nondisplaced intertrochanteric fracture of right femur, subsequent encounter for closed fracture with routine healing Plan: Cont PT/OT. Plan d/c next week to assisted living. (2) Hyponatremia Status: Acute Current Visit: No Plan: Had improved with stopping clonidine and Na restriction of 1200 cc to 133. I let her have an extra 300 cc but Na dropped back to 131. Back on restriction of 1200. Plan to recheck next week. (3) Weakness Status: Acute Current Visit: Yes (4) DM type 2 (diabetes mellitus, type 2) Status: Chronic Current Visit: No Qualifiers: Diabetes mellitus complication status: without complication Diabetes mellitus long chain dyeing machine operator insulin use: without long chain dyeing machine operator use Qualified Code(s): E11.9 - Type 2 diabetes mellitus without complications (5) HTN (hypertension) Status: Chronic Current Visit: No Plan: Stable. (6) Iron deficiency anemia Status: Chronic Current Visit: No Qualifiers: Iron deficiency anemia type: unspecified iron deficiency Qualified Code(s) : D50.9 - Iron deficiency anemia, unspecified Plan: Hgb worsened to 7.2 this week. Recheck was 7.8. No signs of bleeding. Has gotten IV iron in past. Now has po iron. (7) Edema Status: Acute Current Visit: Yes Qualifiers: Edema type: localized Qualified Code(s): R60.0 - Localized edema Plan: Unable to use diuretic due to hypokalmia. On VITO hose daily. Enc. more ambulation and elevate feet. U/s today to r/o DVT given pain also.
[2016-10-05] MEDS: HYDRALAZINE HCL 25 MG TABLET PO SCH ×3 (08:27→18:12)
[2016-10-05] MEDS: ASPIRIN 81 MG CHEW TAB PO SCH (08:27)
[2016-10-05] MEDS: NIFEDIPINE 30 MG TAB.ER.24 PO SCH (08:28)
[2016-10-05] MEDS: METOPROLOL TARTRATE 50 MG TABLET PO SCH ×2 (08:28→20:25)
[2016-10-05] MEDS: IRBESARTAN 300 MG TABLET PO SCH (08:28)
[2016-10-05] MEDS: ACETAMINOPHEN 325 MG TABLET PO SCH ×3 (08:29→18:12)
[2016-10-05] MEDS: FERROUS SULFATE 325 MG TABLET PO SCH ×2 (09:11→18:12)
[2016-10-05] MEDS: POLYETHYLENE GLYCOL 3350 17 GM POWD.PACK PO PRN (09:13)
--- NOTE | 2016-10-05 15:14 | Diagnostic Imaging Report ---
[facility] [address] [facility].[address] [address] Report Submission Date: Oct 05, 2016 11:30:14 AM BEAD FORMING MACHINE SET UP OPERATOR Patient Study Name: LIZA RAMIREZ Date: Oct 05, 2016 10:27:43 AM BEAD FORMING MACHINE SET UP OPERATOR Modality Type: US Gender: F Description: BILAT US DVT : 31 Institution: [facility] Physician: JASE TAYLOR Duplex imaging of the lower extremities Clinical history: Bilateral leg swelling. Postop right hip surgery. Rule out deep venous thrombosis. Technique: Real time sonography of both lower extremities is performed in transverse and longitudinal views. Doppler interrogation and color flow imaging are additionally used. Findings: They are normal Doppler wave forms from the interrogated vessels with normal respiratory fluctuation and augmentation. There is no echogenic thrombus identified within the vessel lumen. The veins compress normally. Impression: 1. No evidence of deep venous thrombosis. Electronically signed on Oct 05, 2016 11:30:14 AM BEAD FORMING MACHINE SET UP OPERATOR by: Geronimo DENSON
[2016-10-06] MEDS: PANTOPRAZOLE SODIUM 40 MG TABLET PO SCH (05:44)
[2016-10-06] MEDS: ASPIRIN 81 MG CHEW TAB PO SCH (09:19)
[2016-10-06] MEDS: HYDRALAZINE HCL 25 MG TABLET PO SCH ×3 (09:19→17:58)
[2016-10-06] MEDS: ACETAMINOPHEN 325 MG TABLET PO SCH ×3 (09:20→17:58)
[2016-10-06] MEDS: IRBESARTAN 300 MG TABLET PO SCH (09:20)
[2016-10-06] MEDS: NIFEDIPINE 30 MG TAB.ER.24 PO SCH (09:20)
[2016-10-06] MEDS: METOPROLOL TARTRATE 50 MG TABLET PO SCH ×2 (09:20→20:38)
[2016-10-06] MEDS: FERROUS SULFATE 325 MG TABLET PO SCH ×2 (11:53→18:16)
[2016-10-06] MEDS: ACETAMINOPHEN 325 MG TABLET PO PRN (13:14)
[2016-10-07] MEDS: PANTOPRAZOLE SODIUM 40 MG TABLET PO SCH (05:12)
[2016-10-07] MEDS: NIFEDIPINE 30 MG TAB.ER.24 PO SCH (07:54)
[2016-10-07] MEDS: METOPROLOL TARTRATE 50 MG TABLET PO SCH ×2 (07:54→20:21)
[2016-10-07] MEDS: ACETAMINOPHEN 325 MG TABLET PO SCH ×3 (07:55→18:18)
[2016-10-07] MEDS: ASPIRIN 81 MG CHEW TAB PO SCH (07:55)
[2016-10-07] MEDS: HYDRALAZINE HCL 25 MG TABLET PO SCH ×3 (07:55→18:18)
[2016-10-07] MEDS: IRBESARTAN 300 MG TABLET PO SCH (07:55)
[2016-10-07] MEDS: FERROUS SULFATE 325 MG TABLET PO SCH ×2 (13:53→18:18)
[2016-10-07] MEDS: traMADol HCL 50 MG TABLET PO PRN (18:18)
[2016-10-08] MEDS: METOPROLOL TARTRATE 50 MG TABLET PO SCH ×2 (07:55→20:49)
[2016-10-08] MEDS: ACETAMINOPHEN 325 MG TABLET PO SCH ×3 (07:56→18:03)
[2016-10-08] MEDS: PANTOPRAZOLE SODIUM 40 MG TABLET PO SCH (07:56)
[2016-10-08] MEDS: ASPIRIN 81 MG CHEW TAB PO SCH (07:56)
[2016-10-08] MEDS: HYDRALAZINE HCL 25 MG TABLET PO SCH ×3 (07:56→18:03)
[2016-10-08] MEDS: NIFEDIPINE 30 MG TAB.ER.24 PO SCH (07:58)
[2016-10-08] MEDS: FERROUS SULFATE 325 MG TABLET PO SCH ×2 (12:45→18:03)
[2016-10-09] MEDS: PANTOPRAZOLE SODIUM 40 MG TABLET PO SCH (05:35)
[2016-10-09] MEDS: METOPROLOL TARTRATE 50 MG TABLET PO SCH ×2 (08:56→20:40)
[2016-10-09] MEDS: NIFEDIPINE 30 MG TAB.ER.24 PO SCH (08:56)
[2016-10-09] MEDS: ASPIRIN 81 MG CHEW TAB PO SCH (08:57)
[2016-10-09] MEDS: ACETAMINOPHEN 325 MG TABLET PO SCH ×4 (08:57→18:13)
[2016-10-09] MEDS: HYDRALAZINE HCL 25 MG TABLET PO SCH ×3 (08:57→18:17)
[2016-10-09] MEDS: FERROUS SULFATE 325 MG TABLET PO SCH ×2 (13:49→18:14)
[2016-10-09] MEDS: IRBESARTAN 300 MG TABLET PO SCH (13:49)
[2016-10-09] MEDS: POLYETHYLENE GLYCOL 3350 17 GM POWD.PACK PO PRN (15:26)
[2016-10-10] MEDS: PANTOPRAZOLE SODIUM 40 MG TABLET PO SCH (06:16)
[2016-10-10 06:34] LABS: BASOPHILS % 0.6 (0.0-1.5); EOSINOPHILS % 5.8 % (0.0-6.8); LYMPHOCYTES # 1.8 # k/uL (0.6-4.0); MEAN CORPUSCULAR HEMOGLOBIN 29.2 pg (28.0-34.0); MONOCYTES # 0.3 # k/uL (0.0-0.9); MONOCYTES % 4.8 % (0.0-11.0); NEUTROPHILS # 3.9 # k/uL (1.4-7.7)
[2016-10-10] MEDS: NIFEDIPINE 30 MG TAB.ER.24 PO SCH (09:38)
[2016-10-10] MEDS: ACETAMINOPHEN 325 MG TABLET PO SCH ×3 (09:38→18:22)
[2016-10-10] MEDS: HYDRALAZINE HCL 25 MG TABLET PO SCH ×3 (09:38→18:22)
[2016-10-10] MEDS: ASPIRIN 81 MG CHEW TAB PO SCH (09:38)
[2016-10-10] MEDS: METOPROLOL TARTRATE 50 MG TABLET PO SCH ×2 (09:41→21:10)
[2016-10-10] MEDS: IRBESARTAN 300 MG TABLET PO SCH (12:15)
[2016-10-10] MEDS: FERROUS SULFATE 325 MG TABLET PO SCH ×2 (12:16→19:13)
[2016-10-10] MEDS: POLYETHYLENE GLYCOL 3350 17 GM POWD.PACK PO PRN (16:17)
[2016-10-10 16:30] LABS: SERUM IRON 46 ug/dL (37-145)
[2016-10-10] MEDS ORDERED: BISACODYL 5 MG TABLET.DR PO ONE (17:00)
[2016-10-11] MEDS: PANTOPRAZOLE SODIUM 40 MG TABLET PO SCH (05:24)
[2016-10-11] MEDS: ACETAMINOPHEN 325 MG TABLET PO SCH ×3 (09:30→17:43)
[2016-10-11] MEDS: HYDRALAZINE HCL 25 MG TABLET PO SCH ×3 (09:31→17:44)
[2016-10-11] MEDS: NIFEDIPINE 30 MG TAB.ER.24 PO SCH (09:31)
[2016-10-11] MEDS: ASPIRIN 81 MG CHEW TAB PO SCH (09:31)
[2016-10-11] MEDS: IRBESARTAN 300 MG TABLET PO SCH (09:31)
[2016-10-11] MEDS: METOPROLOL TARTRATE 50 MG TABLET PO SCH ×2 (09:32→20:44)
[2016-10-11] MEDS ORDERED: FUROSEMIDE 40 MG TABLET PO ONE (12:29)
[2016-10-11] MEDS: FERROUS SULFATE 325 MG TABLET PO SCH ×2 (13:35→17:47)
[2016-10-11] MEDS: POLYETHYLENE GLYCOL 3350 17 GM POWD.PACK PO PRN (17:47)
[2016-10-12] MEDS: PANTOPRAZOLE SODIUM 40 MG TABLET PO SCH (05:48)
[2016-10-12] MEDS: ASPIRIN 81 MG CHEW TAB PO SCH (09:28)
[2016-10-12] MEDS: HYDRALAZINE HCL 25 MG TABLET PO SCH ×3 (09:28→18:28)
[2016-10-12] MEDS: NIFEDIPINE 30 MG TAB.ER.24 PO SCH (09:29)
[2016-10-12] MEDS: ACETAMINOPHEN 325 MG TABLET PO SCH ×3 (09:29→18:29)
[2016-10-12] MEDS: DOCUSATE SODIUM 100 MG CAPSULE PO SCH ×2 (09:43→21:53)
[2016-10-12] MEDS: METOPROLOL TARTRATE 50 MG TABLET PO SCH ×2 (09:47→21:56)
[2016-10-12] MEDS: FERROUS SULFATE 325 MG TABLET PO SCH ×2 (11:50→18:29)
[2016-10-12] MEDS: IRBESARTAN 300 MG TABLET PO SCH (11:50)
[2016-10-13] MEDS: PANTOPRAZOLE SODIUM 40 MG TABLET PO SCH (05:33)
--- NOTE | 2016-10-13 08:21 | Discharge Summary ---
Discharge Summary - Discharge Sumary History of Present Illness: Patient transferred from [facility] after falling and sustaining a R femur fracture, which was repaired by Dr. Pride. She has been at [facility] for [address] Hartman and staff were working on sodium and BP. She also had some noted MS changes. Dr. Hartman told me today she had a sodium of 130 and has been on a 1200 cc fluid restriction (long h/o hyponatremia). Labs with her today were 125. Also noted HGB of 8.0. Patient has seen Dr. Barclay for iron deficiency in past and got IV iron. She is feeling good today - just weak. Leg causes her quite a bit of pain. Condition at Discharge: Stable Home Medications: Ambulatory Orders Medication Instructions Recorded Aspirin [Sintia] 81 mg PO DAILY 08/10/16 Irbesartan [Avapro] 300 mg PO D 08/10/16 Metoprolol Tartrate [Lopressor] 50 mg PO HS 08/10/16 Metoprolol Tartrate [Lopressor] 100 mg PO DAILY 08/10/16 Pantoprazole Sodium [Protonix] 40 mg PO 0700 08/10/16 Polyethylene Glycol 3350 [Miralax] 17 gm PO 1100 PRN 08/10/16 Hydralazine HCl [APRESOLINE] 50 mg PO TID 09/05/16 Nifedipine [Nifedipine ER] 30 mg PO 0700 09/05/16 Tramadol HCl [Ultram] 1 - 2 tab PO Q4 PRN 09/05/16 Nifedipine [Nifedipine ER] 30 mg PO DAILY tab.er.24 10/10/16 Docusate Sodium [Colace] 100 mg PO BID #60 10/12/16 Consultations this Visit: None Procedures this Visit: None Allergies/Adverse Reactions: Allergies Allergy/AdvReac Type Severity Reaction Status Date / Time Penicillins Allergy Unknown Verified 08/10/16 12:12 escitalopram oxalate AdvReac INTOLERANCE Verified 10/12/16 15:05 [From Lexapro] TO THIS MEDICATION quetiapine fumarate AdvReac INTOLERANCE Verified 10/12/16 15:05 [From Seroquel] TO THIS MEDICATION Patient Problems: Current Active Problems Problem Status Onset Edema Acute Right femoral fracture Acute Weakness Acute Discharge Summary: Patient was admitted to SNF care following a R femur fx repair after a fall. She did well with PT/OT though pain still lingers, but is better. Xrays at a month were sent to Dr. Pride who had no changes. He should see her back at the 2 month nazia. She has difficult to control HTN so arrived on several new medications. H/O hyponatremia for several years. At d/c from [facility], sodium was 126 with patient on a 1200 fluid restriction. Patient had also been started on lexapro. Upon arrival here, patient had mental status changes and was combative and hallucinating. This worsened after a dose of Seroquel. This was stopped as well as lexapro. The hallucinations and combativeness improved. However, patient continued to be confused. Sodium dropped to 124. Clonidine was stopped and sodium began to normalize and mentation improved. BP remained 140-160. Fluid restiction was increased to 1500 but sodium dropped again to 131. She has been stable at current 1200 cc restriction and current meds. On transfer, her hemoglobin was 8. This fluctuated between 7.2 and 7.9 while here. Iron was started and iron studies done before discharge were much improved. After discussion with Dr. 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 Plans are to transfuse her 2 units of PRBC's next week. Patient will be discharged to [facility] with PT/OT/ST until a bed at the [facility] in [place] becomes available. Hospital Course: Discharge DX. R femur fx. HTN. Hyponatremia. Anemia
[2016-10-13] MEDS: HYDRALAZINE HCL 25 MG TABLET PO SCH (09:02)
[2016-10-13] MEDS: METOPROLOL TARTRATE 50 MG TABLET PO SCH (09:03)
[2016-10-13] MEDS: DOCUSATE SODIUM 100 MG CAPSULE PO SCH (09:03)
[2016-10-13] MEDS: ASPIRIN 81 MG CHEW TAB PO SCH (09:03)
[2016-10-13] MEDS: NIFEDIPINE 30 MG TAB.ER.24 PO SCH (09:03)
[2016-10-13] MEDS: ACETAMINOPHEN 325 MG TABLET PO SCH (09:04)
[2016-10-13] MEDS: IRBESARTAN 300 MG TABLET PO SCH (09:20)
[2016-10-13 09:47] VITALS: BP 194/74
== END 2016-10-13 10:00 | DRG 560 ==
LOC: SOUTH 15:10
PROVIDERS: ADMIT Family Medicine; ATTEND Family Medicine
DX: S72.144D Nondisplaced intertrochanteric fracture of right femur, subsequent encounter for closed fracture with routine healing (principal); E87.1 Hypo-osmolality and hyponatremia; I10 Essential (primary) hypertension; E78.5 Hyperlipidemia, unspecified; J44.9 Chronic obstructive pulmonary disease, unspecified; D50.9 Iron deficiency anemia, unspecified; E11.9 Type 2 diabetes mellitus without complications; N28.9 Disorder of kidney and ureter, unspecified; F17.210 Nicotine dependence, cigarettes, uncomplicated
CPT/HCPCS: 36415; 73502; 80048; 82728; 83540; 83550; 85025; J0456; J0696; J1650; J2930; J7050; Q0163

== ENCOUNTER 2016-11-01 10:58 | Outpatient (CLI) | payer MEDICARE, OTHER | END 2016-11-01 11:00 | LOC: POD 10:58 | PROVIDERS: ATTEND Podiatrist Public Medicine | DX: E11.9 Type 2 diabetes mellitus without complications (principal); B35.1 Tinea unguium; L60.0 Ingrowing nail; M79.674 Pain in right toe(s); M79.675 Pain in left toe(s) | CPT/HCPCS: 11721; G0463 ==

== ENCOUNTER 2017-02-21 10:49 | Outpatient (CLI) | payer MEDICARE, OTHER | END 2017-02-21 10:50 | LOC: POD 10:49 | PROVIDERS: ATTEND Podiatrist Public Medicine | DX: B35.1 Tinea unguium (principal); E11.9 Type 2 diabetes mellitus without complications; L60.0 Ingrowing nail; M79.674 Pain in right toe(s); M79.675 Pain in left toe(s) | CPT/HCPCS: 11721; G0463 ==

== ENCOUNTER 2017-05-23 10:42 | Outpatient (CLI) | payer MEDICARE, OTHER | END 2017-05-23 10:43 | LOC: POD 10:42 | PROVIDERS: ATTEND Podiatrist Public Medicine | DX: B35.1 Tinea unguium (principal); M79.674 Pain in right toe(s); M79.675 Pain in left toe(s); L60.0 Ingrowing nail; E11.9 Type 2 diabetes mellitus without complications | CPT/HCPCS: 11721; G0463 ==

== ENCOUNTER 2017-08-22 10:57 | Outpatient (CLI) | payer MEDICARE, OTHER | END 2017-08-22 11:16 | LOC: POD 10:57 | PROVIDERS: ATTEND Podiatrist Public Medicine | DX: E11.9 Type 2 diabetes mellitus without complications (principal); B35.1 Tinea unguium; L60.0 Ingrowing nail; M79.674 Pain in right toe(s); M79.675 Pain in left toe(s) | CPT/HCPCS: 11721; G0463 ==

== ENCOUNTER 2017-11-21 10:45 | Outpatient (CLI) | payer MEDICARE, OTHER | END 2017-11-21 10:55 | LOC: POD 10:45 | PROVIDERS: ATTEND Podiatrist Public Medicine | DX: E11.9 Type 2 diabetes mellitus without complications (principal); B35.1 Tinea unguium; L60.0 Ingrowing nail; M79.674 Pain in right toe(s); M79.675 Pain in left toe(s) | CPT/HCPCS: 11721; G0463 ==

== ENCOUNTER 2018-02-20 10:40 | Outpatient (CLI) | payer MEDICARE, OTHER | END 2018-02-20 10:42 | LOC: POD 10:40 | PROVIDERS: ATTEND Podiatrist Public Medicine | DX: E11.9 Type 2 diabetes mellitus without complications (principal); B35.1 Tinea unguium; L60.0 Ingrowing nail; M79.674 Pain in right toe(s); M79.675 Pain in left toe(s) | CPT/HCPCS: 11721; G0463 ==

== ENCOUNTER 2018-09-19 12:53 | Emergency (ER) | payer MEDICARE, OTHER ==
--- NOTE | 2018-09-19 12:59 | ED Physician Documentation ---
Fall - HISTORIAN Historian: patient - HPI Stated Complaint: fall and hip pain Chief Complaint: Fall Onset: just prior to arrival Where: home Context: other (she was dizzy ) r: mild Associated Symptoms:: no loss of consciousness Location of Pain/Injury: hip Injury to Right Extremity: none Injury to Left Extremity: none Further Comments: yes (She states two weeks ago until a few days ago she had "a stomach bug" and she had diarrhea "something terrible" She denies a fever. She is denies any current nausea. She has been eating normally. She has pain in her left hip and buttock although without movement and at this time her hip is not painful. Denies any loss of control of bowel or bladder) - ROS CONST: no problems - PAST HX Past History: diabetes Type 2 Immunizations: UTD Allergies/Adverse Reactions: Allergies Allergy/AdvReac Type Severity Reaction Status Date / Time Penicillins Allergy Unknown Verified 09/19/18 13:40 escitalopram oxalate AdvReac INTOLERANCE Verified 09/19/18 13:40 [From Lexapro] TO THIS MEDICATION quetiapine fumarate AdvReac INTOLERANCE Verified 09/19/18 13:40 [From Seroquel] TO THIS MEDICATION Home Medications: Ambulatory Orders Medication Instructions Recorded Aspirin [Sintia] 81 mg PO DAILY 08/10/16 Irbesartan [Avapro] 300 mg PO D 08/10/16 Polyethylene Glycol 3350 [Miralax] 17 gm PO 1100 PRN 08/10/16 Docusate Sodium [Colace] 100 mg PO BID #60 10/12/16 Acetaminophen [Acetaminophen 8 650 mg PO TID PRN 09/19/18 Hour] Atorvastatin Calcium 10 mg PO DAILY 09/19/18 CloNIDine HCL [Catapress] 0.1 mg PO BID 09/19/18 Ferrous Sulfate [Feosol] 325 mg PO BID 09/19/18 Glipizide 5 mg PO DAILY 09/19/18 Hydrochlorothiazide 25 mg PO DAILY 09/19/18 Levetiracetam [Keppra] 500 mg PO 09/19/18 Metoprolol Tartrate [Lopressor] 50 mg PO BID 09/19/18 - SOCIAL HX Smoking History: non-smoker Alcohol Use: none Drug Use: none - FAMILY HX Family History: none - VITAL SIGNS Vital Signs: Vital Signs Temp Pulse Resp BP Pulse Ox 194/74 10/13/16 09:00 - REVIEWED ASSESSMENTS Nursing Assessment Reviewed: Yes Vitals Reviewed: Yes Progress - Progress Progress: 1510: Suzanne at [facility] contacted about possible transfer. Per request of sister due to PCP at [facility] DG 15[address] Dr Rodriguez accepting [facility] ED Results Lab/Radiology - Radiology Radiology Impressions: Examination: Plain film pelvis/left hip History: LEFT HIP/PELVIS, LEFT HIP PAIN AFTER FALL TODAY (Hx) Comparison exams: None provided Findings: 2 views of the pelvis and left hip demonstrates osteopenia. Right hip fracture fixation hardware. Scattered degenerative spurring. No fracture no di slocation. No soft tissue abnormality. Impression: Osteopenia and degenerative changes. No acute appearing osseous abnormality. Electronically signed on Sep 19, 2018 2:52:38 PM ELECTRIC CUTTER OPERATOR by: Kole Brambila Examination: CT head without contrast History: DIZZINESS AND FALL TODAY (Hx) Comparison exam: None available Technique: Noncontrast head CT protocol. Findings: Ventricles and sulci are prominent. Cerebrocerebellar parenchyma demonstrates periventricular low attenuation consistent with small vessel disease. No evidence for parenchymal hemorrhage. No evidence for mass or mass effect. No midline shift. No extra axial fluid collections. Partial visualization of the paranasal sinuses, mastoid air cells, orbits, skull and scalp without gross irregularity. Streak artifact from dental hardware. Impression: Advanced age related changes. No acute parenchymal process. No hemorrhage. Electronically signed on Sep 19, 2018 2:48:26 PM ELECTRIC CUTTER OPERATOR by: Kole Carrington Physical Exam - Physical Exam General Appearance: no acute distress, alert Head: non-tender, no swelling, no obvious injury Neck: non-tender, painless ROM Eye: TEREZA ENT: nml external inspection Resp/CVS: chest non-tender, breath sounds nml, no resp. distress, heart sounds nml Abdomen: soft, normal bowel sounds, no distension, non-tender Neuro: oriented x3 Skin: color nml, no rash Back: normal inspection Extremities: atraumatic, pelvis stable, hips non-tender, no pedal edema Joint: joints nml - Lisa Coma Score Eyes Open: Spontaneous Speech: Oriented Motor: Obeys Commands Discharge Clincal Impression: Kidney disease UTI (urinary tract infection) Qualifiers: Urinary tract infection type: site unspecified Hematuria presence: without hematuria Qualified Code(s): N39.0 - Urinary tract infection, site not specified Referrals: Yulia Willett MD [Primary Care Provider] - 2 Days Comments: Dr Rodriguez Accepting [facility] DG Condition: Fair Disposition: 02 XFER SHT-TRM HOSP Decision to Admit: NO Date of Decison to Admit: 09/19/18 Decision Time: 15:34
[2018-09-19] MEDS ORDERED: 0.9 % SODIUM CHLORIDE 1,000 ML IV ONE (13:00)
[2018-09-19 14:22] LABS: OCCULT BLOOD,URINE 1+ (NEGATIVE); PH URINE 5.5 (5.0 - 8.0); UROBILINOGEN URINE 0.2 Eu (0.2-1.0)
[2018-09-19 14:37] LABS: MEAN CORPUSCULAR HEMOGLOBIN 29.2 pg (28.0-34.0); MONOCYTES % 3.3 % (0.0-11.0)
[2018-09-19 14:38] LABS: BASOPHILS % 0.3 (0.0-1.5); EOSINOPHILS % 4.9 % (0.0-6.8)
[2018-09-19] MEDS ORDERED: hydrALAZINE HCL 20 MG/1 ML IVP ONE (14:56)
[2018-09-19 16:45] VITALS: BP 188/71
--- NOTE | 2018-09-19 19:13 | Diagnostic Imaging Report ---
ADDY PENNY [facility] [address] [facility] [address] [place], [place]. [address] Report Submission Date: Sep 19, 2018 2:52:38 PM [employer] Patient Study Name: LIZA RAMIREZ Date: Sep 19, 2018 1:36:23 PM [employer] Modality Type: DX Gender: F Description: PELVIS : 31 Institution: [facility] Physician: ADDY PENNY Examination: Plain film pelvis/left hip History: LEFT HIP/PELVIS, LEFT HIP PAIN AFTER FALL TODAY (Hx) Comparison exams: None provided Findings: 2 views of the pelvis and left hip demonstrates osteopenia. Right hip fracture fixation hardware. Scattered degenerative spurring. No fracture no dislocation. No soft tissue abnormality. Impression: Osteopenia and degenerative changes. No acute appearing osseous abnormality. Electronically signed on Sep 19, 2018 2:52:38 PM [employer] by: Kole DENSON
--- NOTE | 2018-09-19 19:17 | Diagnostic Imaging Report ---
ADDY PENNY [facility] [address] [facility] [address] [place], [place]. [address] Report Submission Date: Sep 19, 2018 3:49:05 PM CLINIC PHYSICIAN Patient Study Name: LIZA RAMIREZ Date: Sep 19, 2018 3:02:37 PM CLINIC PHYSICIAN Modality Type: DX Gender: F Description: CHEST : 31 Institution: [facility] Physician: ADDY PENNY Examination: Portable chest History: Evaluate lungs Comparison exam: HYPERTENSION, ELEVATED BNP (Hx) Findings: Single view of the chest demonstrates a normal cardiac and mediastinal silhouette. Bihilar haziness. No blunting of the costophrenic margins. Osseous structures are appropriate for age. Impression: Bihilar haziness. No peripheral consolidation. Electronically signed on Sep 19, 2018 3:49:05 PM CLINIC PHYSICIAN by: Kole DENSON
--- NOTE | 2018-09-19 19:19 | Diagnostic Imaging Report ---
ADDY PENNY [facility] [address] [facility] [address] [place], [place]. [address] Report Submission Date: Sep 19, 2018 2:48:26 PM FLOOR PERSON Patient Study Name: LIZA RAMIREZ Date: Sep 19, 2018 1:36:48 PM FLOOR PERSON Modality Type: CT\SR Gender: F Description: CT BRAIN W/O CONTRAST : 31 Institution: [facility] Physician: ADDY PENNY Examination: CT head without contrast History: DIZZINESS AND FALL TODAY (Hx) Comparison exam: None available Technique: Noncontrast head CT protocol. Findings: Ventricles and sulci are prominent. Cerebrocerebellar parenchyma demonstrates periventricular low attenuation consistent with small vessel disease. No evidence for parenchymal hemorrhage. No evidence for mass or mass effect. No midline shift. No extra axial fluid collections. Partial visualization of the paranasal sinuses, mastoid air cells, orbits, skull and scalp without gross irregularity. Streak artifact from dental hardware. Impression: Advanced age related changes. No acute parenchymal process. No hemorrhage. Electronically signed on Sep 19, 2018 2:48:26 PM FLOOR PERSON by: Kole DENSON
== END 2018-09-19 16:43 | disposition short-term general hospital (02) ==
LOC: ED 12:53
DX: N39.0 Urinary tract infection, site not specified (principal); B96.20 Unspecified Escherichia coli [E. coli] as the cause of diseases classified elsewhere; N28.9 Disorder of kidney and ureter, unspecified; M25.552 Pain in left hip; W19.XXXA Unspecified fall, initial encounter
CPT/HCPCS: 36415; 70450; 71045; 73502; 80053; 81002; 83605; 83880; 85025; 85610; 85730; 87040; 87086; 87186; 93005; 96374; 99285; J0360; J7030; S1016